=== PATIENT | male | born 1960 | race Caucasian/White ===

== ENCOUNTER 2018-03-28 06:47 | Day surgery (SDC) | payer BC, OTHER ==
[2018-03-27 10:25] LABS: HEMATOCRIT 46.8 % (37.9-51.0); HEMOGLOBIN 16.2 g/dL (13.5-17.0); MEAN CORPUSCULAR HGB CONC 34.7 g/dL (32.0-36.0); MEAN CORPUSCULAR VOLUME 95 fl (80-97); PLATELET COUNT 263 10^3/uL (150-450); RED BLOOD COUNT 4.93 10^6/uL (4.35-5.55); RED CELL DISTRIBUTION WIDTH 12.4 % (11.5-14.0); WHITE BLOOD COUNT 6.3 10^3/uL (4.0-10.5)
[~2018-03-28 06:47] MED LIST: ACETAMINOPHEN 325 MG TABLET PO PRN; CEFAZOLIN 1 GM/D5W RTU 1 GM/50 ML RTUPB IV PRN; LACTATED RINGERS 1000 ML IV PRN; LIDOCAINE 0.5% INJ-PF (5 MG/ML) 50 ML SDV SUBCUT PRN
[2018-03-28] MEDS ORDERED: CEFAZOLIN 1 GM/D5W RTU 1 GM/50 ML RTUPB IV ONE (06:57)
[2018-03-28] MEDS ORDERED: HYDROMORPHONE HCL INJ/PF 2 MG/ML AMPULE ONE (07:10)
[2018-03-28] MEDS ORDERED: MIDAZOLAM 2 MG/2 ML INJ ONE (07:10)
[2018-03-28] MEDS ORDERED: PROPOFOL INJ 200 MG/20 ML VIAL IV ONE (07:10)
[2018-03-28] MEDS ORDERED: FENTANYL CITRATE INJ/PF 100 MCG/2 ML AMPUL ONE (07:10)
[2018-03-28] MEDS ORDERED: ACETAMINOPHEN 1,000 MG/100 ML RTUPB IV ONE (07:11)
[2018-03-28] MEDS ORDERED: BUPIVACAINE INJ/PF LIPOSOME/PF 266 MG/20 ML SDV ONE (07:59)
[2018-03-28] MEDS ORDERED: BUPIVACAINE HCL 0.25 % INJ/PF (2.5 MG/1 ML) 30 ML VIAL ONE (07:59)
[2018-03-28] MEDS ORDERED: FENTANYL CITRATE INJ/PF 100 MCG/2 ML AMPUL IV PRN ×3 (09:35)
[2018-03-28] MEDS ORDERED: DIPHENHYDRAMINE HCL 50 MG/ML VIAL IV PRN (09:35)
[2018-03-28] MEDS ORDERED: MEPERIDINE HCL/PF INJ 25 MG/1 ML DISP.SYRIN IV PRN (09:35)
[2018-03-28] MEDS ORDERED: PROMETHAZINE HCL INJ 25 MG/1 ML VIAL IV PRN (09:35)
[2018-03-28] MEDS ORDERED: MORPHINE SULFATE 10 MG/ML INJ IV PRN (09:35)
[2018-03-28] MEDS ORDERED: OXYCODONE-ACETAMINOPHEN 5-325 MG TABLET PO PRN (10:40)
--- NOTE | 2018-03-28 10:40 | Discharge Summary ---
Discharge Summary (SDC) - Discharge Final Diagnosis: Right inguinal hernia Date of Surgery: 03/28/18 Discharge Date: 03/28/18 Condition: Stable Treatment or Instructions: [facility] [address], [place] [address] Discharge Instructions: Open Abdominal Procedures (Hernia, Bowel Surgery) 1.General Information: a. DO NOT DRIVE a car or operative machinery for 1-2 weeks or as long as taking Narcotic pain medication. b. DO NOT consume alcohol, tranquilizers, sleeping medication, or any non- prescribed medication for 24 hours unless approved by your doctor or as long as taking pain medication. c. DO NOT make important decisions or sign any important papers for the first 24 hours after surgery. d. When discharged home the same day as surgery have a responsible person with you the first night. 2.Activity Restriction: 8 weeks; a. Avoid heavy lifting (> 10-15 lbs), straining abdominal muscles and sports, mowing lawn, vacuum grounds cleaner and bending over a lot. b. Walking is important to avoid blood clots in the legs and deep breathing can prevent pneumonia. c. If it fine to go for walks, up and down steps, and ride in a car. 3.Treatment: a. You may shower in 48 hours, then shower daily is fine, but you should not bathe in a tub or go swimming for 2 weeks. b. Leave skin glue intact until it peels away on its own. c. Do not use oils, powders, or lotion on your incision. 4.Medications: a. You may take prescription tablets for pain if needed, one every 6 hours (_toradol ). b. You may resume all normal medications unless a change is specified by your doctors. 5.Diet: b. When discharged after hospital stay you may resume a normal diet. 6.Notify Physician If: a. Pain is not relieved by pain medication b. Persistent nausea and vomiting c. Chills, fever (above 101) d. Persistent bleeding or swelling at the operative site e. Unable to urinate for 6-8 hours f. Increased redness, drainage, or foul smelling discharge from incision 7. Follow Up Care: a. Please call our office to schedule an appointment with your doctor for 2 weeks. In the event of any postoperative problems or questions you may call our office during business hours or the On-Call surgeon through the venetian blind machine operator at [facility]. [facility] [phone] [facility] [phone] (Ask for the surgeon stone sawyer) b. I understand the instructions for my postoperative care as described above and a copy has been given to me. Witness Patient/Significant Other Date Prescriptions: Ketorolac Tromethamine [Toradol 10 mg Tablet] 10 mg PO Q6HP PRN #20 tablet PRN Reason: Referrals: ROEL HANNAH MD [Primary Care Provider] - Discharge Diet: As Tolerated Discharge Activity: No Lifting Over 10 Pounds, No Lifting/Push/Pulling, Walk Frequently Report the Following to Your Physician Immediately: Nausea, Vomiting, Increase in Pain, Fever over 101 Degrees, Unusual Bleeding, Redness, Increased Soreness, Drainage-Foul Smelling
--- NOTE | 2018-03-28 10:59 | Operative Report ---
Operative Report DATE OF SURGERY: 03/28/18 PREOPERATIVE DIAGNOSIS: Right inguinal hernia POSTOPERATIVE DIAGNOSIS: Same, indirect OPERATION: Right inguinal exploration, right inguinal herniorrhaphy, indirect, with large Prolene UHS mesh system SURGEON: FREDDIE BENAVIDES 1ST CIRCUITS ENGINEER: BERHANE BLAKE ANESTHESIA: GA TISSUE REMOVED OR ALTERED: Hernia sac; cord lipoma COMPLICATIONS: None ESTIMATED BLOOD LOSS: Scant INTRAOPERATIVE FINDINGS: See below PROCEDURE: The patient was taken from the preop holding area after the right inguinal area was marked, to the main operating room and general anesthesia was induced. Arms were abducted, right inguinal area clipped of hair, prepped and draped in sterile fashion. Surgical plan surgical timeout were conducted. Markings were made on the skin for the planned right inguinal herniorrhaphy exploration. Skin was anesthetized with quarter percent Marcaine. A standard 6 cm right inguinal herniorrhaphy incision was made with a knife. Annika's fascia and deeper tissues anesthetized as well. External oblique aponeurosis was opened along the direction of its fibers. Superior and inferior fascial flaps were developed. The contents of the inguinal canal were now carefully examined. The ilioinguinal nerve was identified and preserved out the dissection. Of note opening the external ring was extremely product consistent with chronic scarring. The contents of the inguinal canal were now elevated off of the floor of the inguinal canal. This included the cord contents, cord lipoma, and moderate sized inguinal hernia sac. The sac was also fibrotic but came off with careful dissection all the way down to its point of origination which was lateral to the inferior epigastric vessels. The sac was mobilized circumferentially, opened, found contain no visceral structures, closed, and ligated at its base with 2-0 Vicryl suture. The distal portion was amputated; in a similar fashion the lipoma was dissected free of the cord structures, ligated at its base with 2-0 Vicryl suture and amputated as well. Both specimens were sent to pathology in same container We now investigated the floor the inguinal canal. Medially it was stable without evidence of rupture. I felt that a dual layered prosthesis would be appropriate for the reconstruction. I used the entry point just lateral to the inferior epigastric vessels to dissected the retroperitoneal tissue away from the anterior abdominal wall. A combination of blunt and gauze dissection was deployed. We now brought onto the field a non- large Ethicon Prolene UHS prosthesis, and deployed the inner component into the retroperitoneal space, splaying it out in a circumferential fashion. The outer component was trimmed the appropriate length, an upside down U cut in the 6 o'clock position to accommodate the cord structures, and then using approximately 9 0 PDS sutures, the mesh exterior component was tacked to conjoined tendon and Poupart's ligament. The new internal ring was not too tight. We felt the operation was complete. Right testicle and cord structures returned to their anatomic position, external oblique aponeurosis closed with 2-0 Vicryl Annika's fascia 3- 0 Vicryl skin with 3-0 Vicryl Dermabond glue. 20 cc of full-strength Exparel deployed into the subcutaneous tissue. Patient tolerated procedure well, taken recovery in stable condition. The physician assistant paralegal, Ms. Mejia, provided assistance during this case by assisting with retracting tissue, instillation of local anesthesia and closure of skin incisions.
[2018-03-28 12:32] VITALS: BP 110/60
[2018-03-28] MEDS ORDERED: DEXAMETHASONE SOD PHOSPHATE INJ 4 MG/1 ML VIAL ONE (14:36)
[2018-03-28] MEDS ORDERED: KETOROLAC TROMETHAMINE 60 MG/2 ML SDV ONE (14:36)
[2018-03-28] MEDS ORDERED: SUCCINYLCHOLINE CHLORIDE INJ 200 MG/10 ML VIAL ONE (14:36)
[2018-03-28] MEDS ORDERED: ONDANSETRON HCL INJ/PF 4 MG/2 ML SDV ONE (14:36)
[2018-03-28] MEDS ORDERED: GLYCOPYRROLATE 1 MG/5 ML SYRINGE ONE (14:36)
== END 2018-03-28 12:30 | disposition home or self-care (01) ==
LOC: OROUT 06:47
PROVIDERS: ATTEND Surgery
DX: K40.90 Unilateral inguinal hernia, without obstruction or gangrene, not specified as recurrent (principal); D17.6 Benign lipomatous neoplasm of spermatic cord; J30.2 Other seasonal allergic rhinitis; Z01.818 Encounter for other preprocedural examination
CPT/HCPCS: 36415; 85027; 88302 ×2; 49505; C1781; J2250; J0690; J1100; J1885; J1170; J0330; J2405; J2704; J0131; C9290; J3490; 830; J3010